=== PATIENT | male | born 1990 | race Caucasian/White ===

== ENCOUNTER 2019-04-05 12:28 | Emergency (ER) | payer OTHER ==
[~2019-04-05] VITALS: Ht 170.2 cm; Wt 70.8 kg
[2019-04-05 12:41] VITALS: BP 134/81
== END 2019-04-05 14:16 | disposition home or self-care (01) ==
LOC: ER 12:28
DX: M79.662 Pain in left lower leg (principal); Z88.0 Allergy status to penicillin
CPT/HCPCS: 93971-TC